=== PATIENT | male | born 1985 | race African-American/Black ===

== ENCOUNTER 2017-02-18 16:33 | Emergency (ER) | payer MEDICAID ==
[~2017-02-18] VITALS: Ht 182.9 cm; Wt 92.0 kg
== END 2017-02-18 16:56 | disposition left against medical advice (07) ==
LOC: ER 16:55
DX: Z53.21 Procedure and treatment not carried out due to patient leaving prior to being seen by health care provider (principal)

== ENCOUNTER 2017-07-04 01:21 | Emergency (ER) | payer MEDICAID ==
[~2017-07-04] VITALS: Ht 185.4 cm; Wt 81.0 kg
[2017-07-04 01:22] VITALS: BP 145/78
== END 2017-07-04 04:30 | disposition left against medical advice (07) ==
LOC: ER 01:21
DX: F41.9 Anxiety disorder, unspecified (principal); Z53.21 Procedure and treatment not carried out due to patient leaving prior to being seen by health care provider